=== PATIENT | male | born 1960 | race Caucasian/White ===

== ENCOUNTER 2017-08-11 16:35 | Outpatient (CLI) | payer OTHER | END 2017-08-11 17:00 | disposition home or self-care (01) | LOC: SLEEP 16:35 | PROVIDERS: ATTEND Nurse Practitioner Family | DX: G47.00 Insomnia, unspecified (principal); G47.10 Hypersomnia, unspecified; G25.81 Restless legs syndrome; I48.91 Unspecified atrial fibrillation ==

== ENCOUNTER → 2021-01-20 | Outpatient (CLI) | payer SELFPAY ==
--- NOTE | 2021-01-21 18:09 | Diagnostic Imaging Report ---
EXAMINATION: CT coronary calcium scoring. INDICATION: Elevated cholesterol. TECHNIQUE: High-resolution noncontrast CT imaging was performed through the level of the heart and coronary arteries. Imaging evaluated for the extent and presence of coronary calcification utilizing coronary calcification quantification software. COMPARISON: No relevant comparison available. FINDINGS: By CT imaging, there are no identifiable coronary calcifications evident. The patient's total coronary Agatston score is 0. There is no significant atherosclerotic calcification evident. At the level of the aortic valve leaflets is at the mitral valve. There are some mild atherosclerotic calcifications noted within the descending thoracic aorta. The aorta appears normal in caliber. Pulmonary arteries are normal in size. There is no pericardial collection. The visualized portion of the lungs demonstrates no suspicious nodule, mass or finding of a focal infiltrate. IMPRESSION: No identifiable coronary calcification. The patient's total coronary calcium score is 0. Dictated by: Dictated on workstation # [id number]
== END ==
LOC: RAD FS 09:56
PROVIDERS: ATTEND Internal Medicine
DX: E78.00 Pure hypercholesterolemia, unspecified (principal)
CPT/HCPCS: 75571

== ENCOUNTER 2022-01-26 05:33 | Outpatient (CLI) | payer BC ==
[~2022-01-26] VITALS: Ht 177.8 cm; Wt 78.0 kg
[2022-01-26] MEDS ORDERED: VNL37.5T PO (09:22)
[2022-01-26] MEDS ORDERED: ASPI-999 PO (09:22)
[2022-01-26] MEDS ORDERED: BENA1TAB14 PO (09:22)
== END 2022-01-26 09:25 ==
LOC: PREOP 05:33
PROVIDERS: ATTEND Internal Medicine
DX: Z01.818 Encounter for other preprocedural examination (principal); Z12.11 Encounter for screening for malignant neoplasm of colon

== ENCOUNTER 2022-02-11 09:53 | Day surgery (SDC) | payer BC ==
--- NOTE | 2022-01-26 08:10 | HISTORY AND PHYSICAL ---
DATE OF SERVICE: COLONOSCOPY HISTORY AND PHYSICAL HISTORY OF PRESENT ILLNESS: The patient is a 61-year-old white male being set up for his second screening colonoscopy. He underwent colonoscopy a little over 10 years ago and performed by myself that was unremarkable. No evidence for diverticular disease or neoplasia. He is deemed to be of average risk. He is not aware of any family history for colon cancer or colon polyps. He reports no red blood per rectum, melena or change in bowel habit. PAST MEDICAL HISTORY: Significant for insulin resistance and generalized anxiety. He reports that he is retired with less stress and would like to taper down and potentially off of venlafaxine and reports anxiety symptoms have not been an issue for him. He has not been getting any regular physical activity blaming the heat in regards aerobic activity, but is busy with projects and does not sit much during the day. PHYSICAL EXAMINATION: GENERAL: Reveals a white male, appears to be in no acute distress. VITAL SIGNS: Weight stable at 171.8 pounds, blood pressure 130/74. CHEST: Clear. CARDIOVASCULAR: Reveals regular rate and rhythm without murmur, S3 or S4. EXTREMITIES: Reveal no cyanosis, clubbing or edema. ASSESSMENT AND PLAN: 1. Hypertension, under reasonable control. Continue benazepril/HCT 20/12.5 daily. 2. Generalized anxiety with situational component, situational component was removed. He was told to decrease venlafaxine 75 mg, a prescription was called out. In a month, he is to call back if doing well, we will decrease to 37.5 with a consideration for discontinuing from that dose if he continues to have no significant flare of anxiety symptoms. 3. The patient is set up for screening colonoscopy, deemed to be of average risk. Prep instructions with the Plenvu prep were given and questions were answered. We also did discuss the importance of regular physical activity and taking dietary history, recommendations for reducing carbohydrates and increasing protein source considering insulin resistance. Job ID: [id number] DocumentID: [id number] Dictated Date: 01/10/2022 09:32:05 Agricultural Economist Date: 01/10/2022 09:59:15 Dictated By: NORIS DUNCAN MD
[~2022-02-11] VITALS: Ht 177.8 cm; Wt 78.0 kg
[2022-02-11] VITALS (8 sets, daily range): BP systolic 85–133; BP diastolic 42–97
[~2022-02-11 09:53] MED LIST: ASPI-999 PO; BENA1TAB14 PO; VNL37.5T PO
--- NOTE | 2022-02-11 09:59 | Pre-Op Note & Conscious Sedat ---
Pre-Operative Progress Note Date H&P Reviewed: Feb 11, 2022 Time H&P Reviewed: 09:59 History & Physical: H&P Reviewed, Patient Examed, No changes noted Pre-Op Diagnosis: screening Conscious Sedation Pre-Proced ASA Score 2 For ASA 3 and 4: Consider anesthesia and medical clearance. Also, for patients with a history of failed moderate sedation consider anesthesia. Airway Lungs Heart ASA score ASA 1: a normal healthy patient ASA 2: a patient with a mild systemic disease (mid diabetes, controlled hypertension, obesity ASA 3: a patient with a severe systemic disease that limits activity (angina, COPD, prior Myocardial infarction) ASA 4: a patient with an incapacitating disease that is a constant threat to life (CHF, renal failure) ASA 5: a moribund patient not expected to survive 24 hrs. (ruptured aneurysm) ASA 6: a declared brain- patient whose organs are being harvested. For emergent operations, add the letter E after the classification Mallampati Classification Grade 2 Sedation Plan Analgesia, Amnesia, Plan communicated to team members, Discussed options with patient/fam, Discussed risks with patient/fam The patient is an appropriate candidate to undergo the planned procedure, sedation, and anesthesia. The patient immediately re-assessed prior to indication. NORIS DUNCAN MD Feb 11, 2022 09:59
[2022-02-11] MEDS ORDERED: LACTATED RINGERS 1,000 ML IV STA (10:05)
[2022-02-11] MEDS ORDERED: MIDAZOLAM 2 MG/2 ML (VERSED) VIAL ONE (10:53)
[2022-02-11] MEDS ORDERED: PROPOFOL INJECTION 50 ML IV ONE (10:53)
--- NOTE | 2022-02-11 11:21 | Progress Note-Post Operative ---
Post-Procedure Note Physician (s)/Credit Underwriter (s) Physician NORIS DUNCAN MD Pre-Procedure Diagnosis Pre-Procedure Diagnosis: screening Post-Procedure Diagnosis Post-operative diagnosis: 3mm polyp cauterized cecum otherwise normal colon NORIS DUNCAN MD Feb 11, 2022 11:21
--- NOTE | 2022-02-11 11:36 | Anesthesia-General Post-Op ---
MAC Patient Condition Mental Status/LOC: Same as Preop Cardiovascular: Satisfactory Nausea/Vomiting: Absent Respiratory: Satisfactory Pain: Controlled Complications: Absent Post Op Complications Complications None Follow Up Care/Instructions Patient Instructions None needed. Anesthesiology Discharge Order Discharge Order Patient is doing well, no complaints, stable vital signs, no apparent adverse anesthesia problems. No complications reported per nursing. MARY VAZ CRNA Feb 11, 2022 11:36
--- NOTE | 2022-02-11 17:54 | OPERATIVE REPORT ---
DATE OF SERVICE: COLONOSCOPY SUMMARY INDICATION FOR THE PROCEDURE: Screening. DESCRIPTION OF PROCEDURE: The patient was placed in the left lateral decubitus position. Prior to undergoing colonoscopy, digital rectal evaluation was performed. Anal sphincter tone was normal and the perianal reflexes intact. Prostate is normal in size and anodular on digital inspection. No abnormalities were noted on digital inspection of anal canal or distal rectal vault. The colonoscope was then inserted into the rectum and under direct visualization advanced to the cecum. The cecum was identified by identification of ileocecal valve and the appendiceal orifice. Photographic documentation was obtained. Careful inspection was made as colonoscope withdrawn. Quality of prep was good. FINDINGS: No evidence for internal or external hemorrhoids and the rectum, sigmoid colon, descending colon, splenic flexure, transverse colon, hepatic flexure and ascending colon were unremarkable. One 3 mm sessile cecal polyp was noted. It was biopsied and ablated with no subsequent blood loss. ASSESSMENT: One diminutive polyp was removed from the cecum via hot forceps with no blood loss. This is otherwise normal colonoscopy to the cecum. As long as there is no surprise on histopathology report, would advocate consideration for repeat screening colonoscopy in 10 years. Job ID: [id number] DocumentID: [id number] Dictated Date: 02/11/2022 11:31:21 Ruby On Rails Consultant Date: 02/11/2022 17:53:02 Dictated By: NORIS DUNCAN MD
== END 2022-02-11 12:25 | disposition home or self-care (01) ==
LOC: ENDO 09:53
PROVIDERS: ATTEND Internal Medicine
DX: Z12.11 Encounter for screening for malignant neoplasm of colon (principal); K63.5 Polyp of colon; I10 Essential (primary) hypertension; F41.1 Generalized anxiety disorder; Z79.82 Long term (current) use of aspirin; Z28.310 Unvaccinated for COVID-19
CPT/HCPCS: 88305